=== PATIENT | male | born 1940 | race Caucasian/White ===

== ENCOUNTER 2020-07-21 14:28 | Emergency (ER) | payer MEDICARE ==
[~2020-07-21] VITALS: Ht 182.9 cm; Wt 81.7 kg
--- OUTSIDE RECORDS SUMMARY | ~2020-07-21 | XMS | Clinical Summary ---
Demographics + + + | Address | [address] | | | [place] [address] | + + + | Home Phone | | + + + | Preferred Language | Unknown | + + + | Marital Status | Unknown | + + + | Religion Affiliation | Unknown | + + + | Race | Unknown | + + + | Ethnic Group | Unknown | + + + Author + + + | Author | [facility] | | | and [facility] | + + + | Organization | [facility] | | | and [place] | + + + | Address | Unknown | + + + | Phone | Unavailable | + + + Care Team Providers + +------+ + | Care Grey Tender Name | Role | Phone | + +------+ + PCP | Unavailable | + +------+ + Allergies Not on File Medications Not on file Active Problems Not on file Social History + +-------+ +--------+------+ | Tobacco Use | Types | Packs/Day | Years | Date | | | | | Used | | + +-------+ +--------+------+ | Never Assessed | | | | | + +-------+ +--------+------+ + + + | Sex Assigned at | Date Recorded | | | | + + + | Not on file | | + + + Last Filed Vital Signs Not on file Plan of Treatment + + +-------+ + | Health Maintenance | Due Date | Last | Comments | | | | Done | | + + +-------+ + | Vaccine: | | | | | Dtap/Tdap/Td (1 - | 7 | | | | Tdap) | | | | + + +-------+ + | Vaccine: Zoster (1 | | | | | of 2) | 8 | | | + + +-------+ + | Vaccine: | | | | | Pneumococcal 65+ (1 | 3 | | | | of 1 - PPSV23) | | | | + + +-------+ + | Vaccine: Influenza | | | | | (#1) | 0 | | | + + +-------+ + Results Not on filefrom Last 3 Months Insurance + +--------+ +--------+ +---------+--------+ | Payer | Benefi | Subscriber | Effect | Phone | Address | Type | | | t Plan | ID | paula | | | | | | / | | Dates | | | | | | Group | | | | | | + +--------+ +--------+ +---------+--------+ | MEDICARE | MEDICA | [id number] | 06/18/20 | [phone] | | Medica | | | RE | | 03-Pre | 5 | | re | | | PART A | | sent | | | | | | AND B | | | | | | + +--------+ +--------+ +---------+--------+ + +--------+ +--------+ + + | Guarantor Name | Accoun | Relation to | Date | Phone | Billing Address | | | t Type | Patient | of | | | | | | | | | | + +--------+ +--------+ + + | Jaun Howard | Person | Self | [birth year] | [address] | | | al/Fam | | 1940 | [phone] | [place] [address] | | | richard | | | 9 (Home) | | + +--------+ +--------+ + + | Jaun Howard | Person | Self | [birth year] | [address] | | | al/Fam | | 1940 | [phone] | [place] [address] | | | richard | | | 9 (Home) | | + +--------+ +--------+ + + Advance Directives + + + + + | Type | Date Recorded | Patient | Explanation | | | | Milk Handler | | + + + + + | Power of | | | | | Secretary Bookkeeper | | | | + + + + +"
--- OUTSIDE RECORDS SUMMARY | ~2020-07-21 | XMS | Encounter Summary ---
Demographics + + + | Address | [address] | | | [place] [address] | + + + | Home Phone | | + + + | Preferred Language | Unknown | + + + | Marital Status | Unknown | + + + | Druze Affiliation | Unknown | + + + | Race | Unknown | + + + | Ethnic Group | Unknown | + + + Author + + + | Author | [facility] | | | and [place] | + + + | Organization | [facility] | | | and [place] | + + + | Address | Unknown | + + + | Phone | Unavailable | + + + Care Team Providers + +------+ + | Care Senior Java Programmer Name | Role | Phone | + +------+ + PCP | Unavailable | + +------+ + Encounter Details +--------+ + + + + | Date | Type | Department | Care Team | Description | +--------+ + + + + | 03/13/ | Hospital | [facility] | | | | 2006 | Encounter | MED CTR XRAY [address] | | | | | | [address] | | | | | | [place], [place] [address] | | | | | | [phone] | | | +--------+ + + + [...]
[~2020-07-21 14:28] MED LIST: AMLODIPINE BESY10 MG PO; ASPIRIN EC325 MG PO; BACTRIM DS TAB1 EACH PO; FISH OIL 1,2001 EACH PO; GLIPIZIDE10 MG PO; GLIPIZIDE5 MG PO; KEFLEX500 MG PO; LEVOTHYROXINE200 MCG PO; LOSARTAN POTASS25 MG PO; METOPROLOL SUC200 MG PO; METOPROLOL TART25 MG PO; SYNTHROID25 MCG PO; TERAZOSIN HCL2 MG PO; ZOFRAN ODT4 MG PO
[2020-07-21] MEDS ORDERED: KEFLEX500 MG PO (16:09)
[2020-07-21] MEDS ORDERED: NORCO 5-325 TA1 EACH PO (16:09)
== END 2020-07-21 16:36 | disposition home or self-care (01) ==
LOC: ED 14:28
DX: S62.521A Displaced fracture of distal phalanx of right thumb, initial encounter for closed fracture (principal); S61.111A Laceration without foreign body of right thumb with damage to nail, initial encounter; E11.9 Type 2 diabetes mellitus without complications; I10 Essential (primary) hypertension; E78.00 Pure hypercholesterolemia, unspecified; Z79.899 Other long term (current) drug therapy; W31.89XA Contact with other specified machinery, initial encounter
CPT/HCPCS: 11760; 73140; 99283-25

== ENCOUNTER 2020-08-10 07:10 | Emergency (ER) | payer OTHER ==
[~2020-08-10] VITALS: Ht 182.9 cm; Wt 81.6 kg
--- OUTSIDE RECORDS SUMMARY | ~2020-08-10 | XMS | Encounter Summary ---
Demographics + + + | Address | [address] | | | [place] [address] | + + + | Home Phone | | + + + | Preferred Language | Unknown | + + + | Marital Status | Unknown | + + + | Church Affiliation | Unknown | + + + | Race | Unknown | + + + | Ethnic Group | Unknown | + + + Author + + + | Author | [facility] | | | and [place] | + + + | Organization | [facility] | | | and [place] | + + + | Address | Unknown | + + + | Phone | Unavailable | + + + Care Team Providers + +------+ + | Care Burr Filer Name | Role | Phone | + +------+ + PCP | Unavailable | + +------+ + Encounter Details +--------+ + + + + | Date | Type | Department | Care Team | Description | +--------+ + + + + | 03/13/ | Hospital | [facility] | | | | 2006 | Encounter | MED CTR XRAY [address] | | | | | | [address] | | | | | | [place], [place] [address] | | | | | | [phone] | | | +--------+ + + + + Social History + +-------+ +--------+------+ | Tobacco [...] on file | | + + + documented as of this encounter Plan of Treatment Not on filedocumented as of this encounter Visit Diagnoses Not on filedocumented in this encounter"
--- OUTSIDE RECORDS SUMMARY | ~2020-08-10 | XMS | Clinical Summary ---
Demographics + + + | Address | [address] | | | [place] [address] | + + + | Home Phone | | + + + | Preferred Language | Unknown | + + + | Marital Status | Unknown | + + + | Hindu Affiliation | Unknown | + + + | Race | Unknown | + + + | Ethnic Group | Unknown | + + + Author + + + | Author | [facility] | | | and [facility] | + + + | Organization | [facility] | | | and [place] | + + + | Address | Unknown | + + + | Phone | Unavailable | + + + Care Team Providers + +------+ + | Care Insurance Loss Adjuster Name | Role | Phone | + [...] +--------+ +---------+--------+ | MEDICARE | MEDICA | [id number] | 06/18/20 | [phone] | | Medica [...] Person | Self | [birth year] | [address] | | | al/Fam | | 1940 | [phone] | [place] [address] | | | richard | | | 9 (Home) | | + +--------+ +--------+ + + Advance Directives + + + + + | Type | Date Recorded | Patient | Explanation | | | | Pain Coordinator | | + + + + + | Power of | | | | | Technical Data Analyst | | | | + + + + +"
[~2020-08-10 07:10] MED LIST changes: +NORCO 5-325 TA1 EACH PO
--- OUTSIDE RECORDS SUMMARY | 2020-08-10 07:12 | XMS ---
PreManage Notification: BYRON BOATENG Security Corporate Real Estate Specialist Events No recent Security Events currently on file CRITERIA MET - [facility] - 2 Visits in 30 Days CARE PROVIDERS There are no care providers on record at this time. Keli has no Care Guidelines for this patient. Cait VISIT COUNT (12 MO.) [address] [facility] TOTAL 2 NOTE: Visits indicate total known visits. ED[facility] VISIT TRACKING (12 MO.) 08/10/2020 07:[address] [facility] [place] TYPE: Emergency COMPLAINT: - SUTURE REMOVAL 07/21/2020 14:[address] 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
== END 2020-08-10 07:34 | disposition home or self-care (01) ==
LOC: ED 07:10
DX: S61.011D Laceration without foreign body of right thumb without damage to nail, subsequent encounter (principal)

== ENCOUNTER 2022-09-18 19:47 | Emergency (ER) | payer OTHER, MEDICARE ==
[~2022-09-18] VITALS: Ht 182.9 cm; Wt 74.5 kg
[2022-09-18] MEDS ORDERED: FLOMAX0.4 MG PO (22:33)
[2022-09-18] MEDS ORDERED: CONSTULOSE10 GM/15 M PO (22:34)
== END 2022-09-19 06:45 | disposition home or self-care (01) ==
LOC: ED 19:47
DX: N13.9 Obstructive and reflux uropathy, unspecified (principal); K59.00 Constipation, unspecified; E11.9 Type 2 diabetes mellitus without complications; I10 Essential (primary) hypertension; E78.00 Pure hypercholesterolemia, unspecified
CPT/HCPCS: 36415; 51702; 51798; 74018; 80053; 81001; 83735; 85025; 87502; 99283-25; J7121; U0003

== ENCOUNTER 2022-10-16 20:56 | Emergency (ER) | payer OTHER, MEDICARE ==
[~2022-10-16] VITALS: Ht 180.3 cm; Wt 74.5 kg
[~2022-10-16 20:56] MED LIST changes: +CONSTULOSE10 GM/15 M PO; +FLOMAX0.4 MG PO
--- OUTSIDE RECORDS SUMMARY | 2022-10-16 21:00 | XMS ---
PreManage Notification: BYRON BOATENG Security Pharmacy Stock Clerk Events No recent Security Events currently on file CRITERIA MET - [facility] - 2 Visits in 30 Days CARE PROVIDERS [facility] Internal Medicine 08/11/2020-Current PHONE: Unknown [facility] Current PHONE: [phone] Keli has no Care Guidelines for this patient. Care History Medical/Surgical 08/11/2020 [facility] \T\middot;\T\nbsp; PATIENT IS A -RECEIVES SERVICES THROUGH [place] IN [place]. \T\middot;\T\nbsp; Location: [address], [place] [address]- E.D. VISIT COUNT (12 MO.) [address] [facility] TOTAL 2 NOTE: Visits indicate total known visits. ED/UCC VISIT TRACKING (12 MO.) 10/16/2022 20:57 [facility] [place] TYPE: Emergency COMPLAINT: - CATHETER PROBLEM 09/18/2022 19:47 [facility] [place] TYPE: Emergency COMPLAINT: - WEAKNESS DIAGNOSES: - Weakness - Essential (primary) hypertension - Obstructive and reflux uropathy, unspecified - Contact with and (suspected) exposure to COVID-19 - Constipation, unspecified - Pure hypercholesterolemia, unspecified - Type 2 diabetes mellitus without complications INPATIENT VISIT TRACKING (12 MO.) No inpatient visits to display in this time frame [id number]
[2022-10-16] MEDS ORDERED: FLUTICASONE PRO16 GM NAS (21:04)
[2022-10-16] MEDS ORDERED: AMLODIPINE BESYL5 MG PO (21:04)
[2022-10-16] MEDS ORDERED: LEVOTHYROXINE125 MCG PO (21:04)
[2022-10-17] MEDS ORDERED: FLOMAX0.4 MG PO (00:23)
[2022-10-17] MEDS ORDERED: MACROBID 100 M100 MG PO (00:57)
== END 2022-10-17 01:28 | disposition home or self-care (01) ==
LOC: ED 20:56
DX: T83.091A Other mechanical complication of indwelling urethral catheter, initial encounter (principal); R33.9 Retention of urine, unspecified; N39.0 Urinary tract infection, site not specified; I10 Essential (primary) hypertension; E11.9 Type 2 diabetes mellitus without complications; E78.00 Pure hypercholesterolemia, unspecified; Z79.899 Other long term (current) drug therapy; Y83.8 Other surgical procedures as the cause of abnormal reaction of the patient, or of later complication, without mention of misadventure at the time of the procedure
CPT/HCPCS: 51702; 51798; 81001; 99283-25

== ENCOUNTER 2022-10-25 12:03 | Emergency (ER) | payer OTHER, MEDICARE ==
[~2022-10-25] VITALS: Ht 180.3 cm; Wt 66.3 kg
[~2022-10-25 12:03] MED LIST changes: +AMLODIPINE BESYL5 MG PO; +FLUTICASONE PRO16 GM NAS; +LEVOTHYROXINE125 MCG PO; +MACROBID 100 M100 MG PO
--- OUTSIDE RECORDS SUMMARY | 2022-10-25 12:10 | XMS ---
PreManage Notification: BYRON BOATENG Security Manager Community Relations Events No recent Security Events currently on file CRITERIA MET - [facility] - 2 Visits in 30 Days CARE PROVIDERS COREY HAYS Internal Medicine 08/11/2020-Current PHONE: Unknown [facility] Current PHONE: [phone] Keli has no Care Guidelines for this patient. Care History Medical/Surgical 08/11/2020 [facility] \T\middot;\T\nbsp; PATIENT IS A -RECEIVES SERVICES THROUGH [place]. \T\middot;\T\nbsp; Location: [address], [place] [address]- E.D. VISIT COUNT (12 MO.) [address] [facility] TOTAL 3 NOTE: Visits indicate total known visits. 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 [place] TYPE: Emergency COMPLAINT: - WEAKNESS DIAGNOSES: - Pure hypercholesterolemia, unspecified - Type 2 diabetes mellitus without complications - Weakness - Essential (primary) hypertension - Obstructive and reflux uropathy, unspecified - Contact with and (suspected) exposure to COVID-19 - Constipation, unspecified INPATIENT VISIT TRACKING (12 MO.) No inpatient visits to display in this time frame [id number]
[2022-10-25] MEDS ORDERED: ELIQUIS5 M1 PO (17:48)
[2022-10-25] MEDS ORDERED: CEPHALEXIN500 M1 PO (17:48)
== END 2022-10-25 18:47 | disposition home or self-care (01) ==
LOC: ED 12:03
DX: I26.99 Other pulmonary embolism without acute cor pulmonale (principal); N39.0 Urinary tract infection, site not specified; R63.4 Abnormal weight loss; E11.9 Type 2 diabetes mellitus without complications; I10 Essential (primary) hypertension; E78.00 Pure hypercholesterolemia, unspecified; Z79.899 Other long term (current) drug therapy
CPT/HCPCS: 36415; 71260; 74177; 80053; 81001; 83690; 85025; 99285-25; J2405; J7030; Q9967

== ENCOUNTER 2023-05-29 10:54 | Emergency (ER) | payer OTHER, MEDICARE ==
[~2023-05-29] VITALS: Ht 180.3 cm; Wt 73.6 kg
--- OUTSIDE RECORDS SUMMARY | ~2023-05-29 | XMS | Continuity of Care Document ---
Demographics + + + | Address | [address] | | | [place] [address] | + + + | Preferred Language | Unknown | + + + | Marital Status | | + + + | Advent Affiliation | Unknown | + + + | Race | White | + + + | Ethnic Group | Not or | + + + Author + + + | Author | [facility] | + + + | Organization | [facility] | + + + | Address | [address] | | | [place] [address] | + + + | Phone | | + + + Care Team Providers + + + + | Care Revenue Stamper Name | Role | Phone | + + + + Unavailable | Unavailable | + + + + Unavailable | Unavailable | + + + + Unavailable | Unavailable | + + + + Allergies and Intolerances + + + + + | date | description | facility | type | + + + + + | (no date) | No Known Allergies | [facility] | (unknown) | | | | | | + + + + + Encounters No information. Functional Status No information. Immunizations No information. Medications + + + + | date | description | facility | + + + + | 2022-10-17 00:00 | FLUTICASONE PROPIONATE 50 | [facility] | | | MCG | | + + + + | 2022-10-26 00:00 | FLUTICASONE PROPIONATE 50 | [facility] | | | MCG | | + + + + | 2022-10-17 00:00 | AMLODIPINE BESYLATE | [facility] | + + + + | 2022-10-26 00:00 | AMLODIPINE BESYLATE | [facility] | + + + + | 2022-10-25 00:00 | CEPHALEXIN | [facility] | + + + + | 2022-10-25 00:00 | Apixaban | [facility] | + + + + | 2022-09-19 00:00 | GLIPIZIDE | [facility] | + + + + | 2022-10-17 00:00 | GLIPIZIDE | [facility] | + + + + | 2022-10-26 00:00 | GLIPIZIDE | [facility] | + + + + | 2022-10-17 00:00 | NITROFURANTOIN MONOHYD | [facility] | | | MACROCR | | + + + + | 2022-09-18 00:00 | LACTULOSE | [facility] | + + + + | 2016-09-22 00:00 | | [facility] | | | SULFAMETHOXAZOLE/TRIMETHOPR | | | | IM DS | | + + + + | 2016-09-22 00:00 | | [facility] | | | SULFAMETHOXAZOLE/TRIMETHOPR | | | | IM DS | | + + + + | 2020-07-21 00:00 | HYDROCODONE | [facility] | | | BIT/ACETAMINOPHEN | | + + + + | 2020-07-21 00:00 | HYDROCODONE | [facility] | | | BIT/ACETAMINOPHEN | | + + + + | 2022-09-18 00:00 | TAMSULOSIN HCL | [facility] | + + + + | 2022-10-17 00:00 | TAMSULOSIN HCL | [facility] | + + + + | 2022-10-17 00:00 | TAMSULOSIN HCL | [facility] | + + + + | 2022-09-19 00:00 | METOPROLOL TARTRATE | [facility] | + + + + | 2022-10-17 00:00 | METOPROLOL TARTRATE | [facility] | + + + + | 2022-10-26 00:00 | METOPROLOL TARTRATE | [facility] | + + + + | 2022-09-19 00:00 | LEVOTHYROXINE SODIUM | [facility] | + + + + | 2022-10-17 00:00 | LEVOTHYROXINE SODIUM | [facility] | + + + + | 2022-10-26 00:00 | LEVOTHYROXINE SODIUM | [facility] | + + + + | 2022-10-17 00:00 | LEVOTHYROXINE SODIUM | [facility] | + + + + | 2022-10-26 00:00 | LEVOTHYROXINE SODIUM | [facility] | + + + + Problems + + + + | | description | facility | + + + + | 2016-09-22 00:00 | Viral infection | [facility] | + + + + | 2016-09-22 00:00 | Viral infection | [facility] | + + + + | 2016-09-22 00:00 | Cellulitis of great toe of | [facility] | | | right foot | | + + + + | 2016-09-22 00:00 | Cellulitis of great toe of | [facility] | | | right foot | | + + + + | 2016-09-22 00:00 | Weakness | [facility] | + + + + | 2016-09-22 00:00 | Weakness | [facility] | + + + + | 2020-08-10 00:00 | Encounter for medical | [facility] | | | screening examination | | + + + + | 2020-08-10 00:00 | Encounter for medical | [facility] | | | screening examination | | + + + + | 2022-09-18 00:00 | Constipation | [facility] | + + + + | 2022-09-18 00:00 | Constipation | [facility] | + + + + | 2022-09-18 00:00 | Obstruction to urinary | [facility] | | | outflow | | + + + + | 2022-09-18 00:00 | Obstruction to urinary | [facility] | | | outflow | | + + + + | 2022-10-16 20:57 | TYPE 2 DIABETES MELLITUS | [facility] | | | WITHOUT COMPLICATIONS | | + + + + | 2022-10-16 20:57 | PURE HYPERCHOLESTEROLEMIA, | [facility] | | | UNSPECIFIED | | + + + + | 2022-10-16 20:57 | Essential (primary) | [facility] | | | hypertension | | + + + + | 2022-10-16 20:57 | URINARY TRACT INFECTION, | [facility] | | | SITE NOT SPECIFIED | | + + + + | 2022-10-16 20:57 | RETENTION OF URINE, | [facility] | | | UNSPECIFIED | | + + + + | 2022-10-16 20:57 | [facility] COMPL OF INDWELLING | [facility] | | | URETHRAL CATHETER, INIT | | + + + + | 2022-10-16 20:57 | OTH SURGICAL PROCEDURES | [facility] | | | CAUSE ABN REACT/COMPL, W/O | | + + + + | 2022-10-16 20:57 | OTHER NURSING HOME (CURRENT) | [facility] | | | DRUG THERAPY | | + + + + | 2022-10-17 00:00 | Urinary tract infection | [facility] | + + + + | 2022-10-17 00:00 | Urinary tract infection | [facility] | + + + + | 2022-10-17 00:00 | Retention of urine | [facility] | + + + + | 2022-10-17 00:00 | Retention of urine | [facility] | + + + + | 2022-10-17 00:00 | Problem with Lisa | [facility] | | | catheter | | + + + + | 2022-10-17 00:00 | Problem with Lisa | [facility] | | | catheter | | + + + + | 2022-10-24 11:58 | ATHEROSCLEROSIS OF OTHER | [facility] | | | ARTERIES | | + + + + | 2022-10-24 11:58 | OTHER DISORDERS OF LUNG | [facility] | + + + + | 2022-10-24 11:58 | FECAL IMPACTION | [facility] | + + + + | 2022-10-24 11:58 | 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, LUMBAR REG | | + + + + | 2022-10-24 11:58 | ABNORMAL WEIGHT LOSS | [facility] | + + + + | 2022-10-25 00:00 | Pulmonary embolism | [facility] | + + + + | 2022-10-25 00:00 | Weight loss | [facility] | + + + + | 2022-10-25 12:03 | TYPE 2 DIABETES MELLITUS | [facility] | | | WITHOUT COMPLICATIONS | | + + + + | 2022-10-25 12:03 | PURE HYPERCHOLESTEROLEMIA, | [facility] | | | UNSPECIFIED | | + + + + | 2022-10-25 12:03 | Essential (primary) | [facility] | | | hypertension | | + + + + | 2022-10-25 12:03 | 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 | | + + + + | 2022-10-25 12:03 | URINARY TRACT INFECTION, | [facility] | | | SITE NOT SPECIFIED | | + + + + | 2022-10-25 12:03 | WEAKNESS | [facility] | + + + + | 2022-10-25 12:03 | ABNORMAL WEIGHT LOSS | [facility] | + + + + | 2022-10-25 12:03 | OTHER NURSING HOME (CURRENT) | [facility] | | | DRUG THERAPY | | + + + + | 2022-12-04 15:30 | 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 | | + + + + | 2022-12-04 15:30 | ENCOUNTER FOR THERAPEUTIC | [facility] | | | DRUG LEVEL MONITORING | | + + + + | 2022-12-04 15:30 | NURSING HOME (CURRENT) USE OF | [facility] | | | ANTICOAGULANTS | | + + + + | 2022-12-11 10:25 | ENCOUNTER FOR THERAPEUTIC | [facility] | | | DRUG LEVEL MONITORING | | + + + + | 2022-12-18 10:40 | 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 | | + + + + | 2022-12-18 10:40 | ENCOUNTER FOR THERAPEUTIC | [facility] | | | DRUG LEVEL MONITORING | | + + + + | 2022-12-18 10:40 | ISOTOPE TECHNOLOGIST (CURRENT) USE OF | [facility] | | | ANTICOAGULANTS | | + + + + | 2022-12-21 09:54 | UNIL INGUINAL HERNIA, W/O | [facility] | | | OBST OR GANGR, NOT SPCF | | | | RECUR | | + + + + | 2023-01-01 09:47 | 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 | | + + + + | 2023-01-01 09:47 | ENCOUNTER FOR THERAPEUTIC | [facility] | | | DRUG LEVEL MONITORING | | + + + + | 2023-01-01 09:47 | ISOTOPE TECHNOLOGIST (CURRENT) USE OF | [facility] | | | ANTICOAGULANTS | | + + + + | 2023-05-23 09:40 | UNIL INGUINAL HERNIA, W/O | [facility] | | | OBST OR GANGR, NOT SPCF | | + + + + | 2023-05-23 09:40 | ENCOUNTER FOR OTHER | [facility] | | | PREPROCEDURAL EXAMINATION | | + + + + | 2023-05-29 08:15 | HYPOTHYROIDISM, | [facility] | | | UNSPECIFIED | | + + + + | 2023-05-29 08:15 | TYPE 2 DIABETES MELLITUS | [facility] | | | WITHOUT COMPLIC | | + + + + | 2023-05-29 08:15 | 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[facility] | | | WITHOUT ACUTE C | | + + + + | 2023-05-29 08:15 | UNIL INGUINAL HERNIA, W/O | [facility] | | | OBST OR GANGR, | | + + + + | 2023-05-29 08:15 | BENIGN PROSTATIC | [facility] | | | HYPERPLASIA WITHOUT LOW | | + + + + | 2023-05-29 09:00 | HYPOTHYROIDISM, | [facility] | | | UNSPECIFIED | | + + + + | 2023-05-29 09:00 | TYPE 2 DIABETES MELLITUS | [facility] | | | WITHOUT COMPLIC | | + + + + | 2023-05-29 09:00 | 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[facility] | | | WITHOUT ACUTE C | | + + + + | 2023-05-29 09:00 | UNIL INGUINAL HERNIA, W/O | [facility] | | | OBST OR GANGR, | | + + + + | 2023-05-29 09:00 | BENIGN PROSTATIC | [facility] | | | HYPERPLASIA WITHOUT LOW | | + + + + Procedures No information. Results/Labs No information. Social History No information. Vital Signs + + + +---------+ | date | measurement | value | units | + + + +---------+ | 2022-09-18 00:00 | BMI | 22.3 | kg/m2 | + + + +---------+ | 2022-09-18 00:00 | height_metric | 182.88 | cm | + + + +---------+ | 2022-09-18 00:00 | height_standard | 72 | in | + + + +---------+ | 2022-09-18 00:00 | weight_metric | 74.5 | kg | + + + +---------+ | 2022-09-18 00:00 | weight_standard | 164.24 | lb | + + + +---------+ | 2022-09-19 00:00 | BP_diastolic | 102 | mmHg | + + + +---------+ | 2022-09-19 00:00 | BP_systolic | 166 | mmHg | + + + +---------+ | 2022-09-19 00:00 | heart_rate | 86 | /min | + + + +---------+ | 2022-09-19 00:00 | o2_saturation | 97 | % | + + + +---------+ | 2022-09-19 00:00 | respiration_rate | 16 | /min | + + + +---------+ | 2022-09-19 00:00 | temperature_metric | 36.5 | C | | | | | | + + + +---------+ | 2022-09-19 00:00 | | 97.7 | F | | | temperature_standar | | | | | d | | | + + + +---------+ | 2022-10-16 00:00 | BMI | 22.9 | kg/m2 | + + + +---------+ | 2022-10-16 00:00 | height_metric | 180.34 | cm | + + + +---------+ | 2022-10-16 00:00 | height_standard | 71 | in | + + + +---------+ | 2022-10-16 00:00 | weight_metric | 68.13 | kg | + + + +---------+ | 2022-10-16 00:00 | weight_metric | 74.47 | kg | + + + +---------+ | 2022-10-16 00:00 | weight_standard | 150.19 | lb | + + + +---------+ | 2022-10-16 00:00 | weight_standard | 164.18 | lb | + + + +---------+ | 2022-10-17 00:00 | BP_diastolic | 84 | mmHg | + + + +---------+ | 2022-10-17 00:00 | BP_systolic | 113 | mmHg | + + + +---------+ | 2022-10-17 00:00 | heart_rate | 84 | /min | + + + +---------+ | 2022-10-17 00:00 | o2_saturation | 97 | % | + + + +---------+ | 2022-10-17 00:00 | respiration_rate | 17 | /min | + + + +---------+ | 2022-10-17 00:00 | temperature_metric | 37 | C | | | | | | + + + +---------+ | 2022-10-17 00:00 | | 98.6 | F | | | temperature_standar | | | | | d | | | + + + +---------+ | 2022-10-25 00:00 | BMI | 20.4 | kg/m2 | + + + +---------+ | 2022-10-25 00:00 | BP_diastolic | 66 | mmHg | + + + +---------+ | 2022-10-25 00:00 | BP_systolic | 146 | mmHg | + + + +---------+ | 2022-10-25 00:00 | heart_rate | 89 | /min | + + + +---------+ | 2022-10-25 00:00 | height_metric | 180.34 | cm | + + + +---------+ | 2022-10-25 00:00 | height_standard | 71 | in | + + + +---------+ | 2022-10-25 00:00 | o2_saturation | 99 | % | + + + +---------+ | 2022-10-25 00:00 | respiration_rate | 16 | /min | + + + +---------+ | 2022-10-25 00:00 | temperature_metric | 36.83 | C | | | | | | + + + +---------+ | 2022-10-25 00:00 | | 98.3 | F | | | temperature_standar | | | | | d | | | + + + +---------+ | 2022-10-25 00:00 | weight_metric | 66.31 | kg | + + + +---------+ | 2022-10-25 00:00 | weight_standard | 146.19 | lb | + + + +---------+"
--- OUTSIDE RECORDS SUMMARY | ~2023-05-29 | XMS | Continuity of Care Document ---
Demographics + + + | Address | [address] | | | [place] [address] | + + + | Preferred Language | Unknown | + + + | Marital Status | | + + + | Temple Affiliation | Unknown | + + + | Race | White | + + + | Ethnic Group | Not or | + + + Author + + + | Author | [facility] | + + + | Organization | [facility] | + + + | Address | [address] | | | [place] [address] | + + + | Phone | | + + + Care Team Providers + + + + | Care Lead Network Architect Name | Role | Phone | + [...] 2022-10-17 00:00 | FLUTICASONE PROPIONATE 50 | [facility] | | | [facility]CG | | + + + + | 2022-10-26 00:00 | FLUTICASONE PROPIONATE 50 | [facility] | | | MCG | | + + + + | 2022-10-17 00:00 | AMLODIPINE BESYLATE | [facility] | + + + + | 2022-10-26 00:00 | AMLODIPINE BESYLATE | [facility] | + + + + | 2022-10-25 00:00 | CEPHALEXIN | [facility] | + + + + | 2022-10-25 00:00 | Apixaban | [facility] | + + + + | 2022-09-19 00:00 | GLIPIZIDE | [facility] | + + + + | 2022-10-17 00:00 | GLIPIZIDE | [facility] | + + + + | 2022-10-26 00:00 | GLIPIZIDE | [facility] | + + + + | 2022-10-17 00:00 | NITROFURANTOIN MONOHYD | [facility] | | | MACROCR | | + + + + | 2022-09-18 00:00 | LACTULOSE | [facility] | + + + + | 2016-09-22 00:00 | | [facility] | | | SULFAMETHOXAZOLE/TRIMETHOPR | | | | IM DS | | + + + + | 2016-09-22 00:00 | | [facility] | | | SULFAMETHOXAZOLE/TRIMETHOPR | | | | IM DS | | + + + + | 2020-07-21 00:00 | HYDROCODONE | [facility] | | | BIT/ACETAMINOPHEN | | + + + + | 2020-07-21 00:00 | HYDROCODONE | [facility] | | | BIT/ACETAMINOPHEN | | + + + + | 2022-09-18 00:00 | TAMSULOSIN HCL | [facility] | + + + + | 2022-10-17 00:00 | TAMSULOSIN HCL | [facility] | + + + + | 2022-10-17 00:00 | TAMSULOSIN HCL | [facility] | + + + + | 2022-09-19 00:00 | METOPROLOL TARTRATE | [facility] | + + + + | 2022-10-17 00:00 | METOPROLOL TARTRATE | [facility] | + + + + | 2022-10-26 00:00 | METOPROLOL TARTRATE | [facility] | + + + + | 2022-09-19 00:00 | LEVOTHYROXINE SODIUM | [facility] | + + + + | 2022-10-17 00:00 | LEVOTHYROXINE SODIUM | [facility] | + + + + | 2022-10-26 00:00 | LEVOTHYROXINE SODIUM | [facility] | + + + + | 2022-10-17 00:00 | LEVOTHYROXINE SODIUM | [facility] | + + + + | 2022-10-26 00:00 | LEVOTHYROXINE SODIUM | [facility] | + + + + Problems + + + + | | description | facility | + + + + | 2016-09-22 00:00 | Viral infection | [facility] | + + + + | 2016-09-22 00:00 | Viral infection | [facility] | + + + + | 2016-09-22 00:00 | Cellulitis of great toe of | [facility] | | | right foot | | + + + + | 2016-09-22 00:00 | Cellulitis of great toe of | [facility] | | | right foot | | + + + + | 2016-09-22 00:00 | Weakness | [facility] | + + + + | 2016-09-22 00:00 | Weakness | [facility] | + + + + | 2020-08-10 00:00 | Encounter for medical | [facility] | | | screening examination | | + + + + | 2020-08-10 00:00 | Encounter for medical | [facility] | | | screening examination | | + + + + | 2022-09-18 00:00 | Constipation | [facility] | + + + + | 2022-09-18 00:00 | Constipation | [facility] | + + + + | 2022-09-18 00:00 | Obstruction to urinary | [facility] | | | outflow | | + + + + | 2022-09-18 00:00 | Obstruction to urinary | [facility] | | | outflow | | + [...] + + + | 2022-10-16 20:57 | [facility] COMPL OF INDWELLING | [facility] | | | URETHRAL CATHETER, INIT | | + + + + | 2022-10-16 20:57 | OTH SURGICAL PROCEDURES | [facility] | | | CAUSE ABN REACT/COMPL, W/O | | + + + + | 2022-10-16 20:57 | OTHER [facility] (CURRENT) | [facility] | | | DRUG THERAPY | | + + + + | 2022-10-17 00:00 | Urinary tract infection | [facility] | + + + + | 2022-10-17 00:00 | Urinary tract infection | [facility] | + + + + | 2022-10-17 00:00 | Retention of urine | [facility] | + + + + | 2022-10-17 00:00 | Retention of urine | [facility] | + + + + | 2022-10-17 00:00 | Problem with Lisa | [facility] | | | catheter | | + + + + | 2022-10-17 00:00 | Problem with Lisa | [facility] | | | catheter | | + [...] | 2022-10-25 00:00 | Pulmonary embolism | [facility] | + + + + | 2022-10-25 00:00 | Weight loss | [facility] | + + + + | 2022-10-25 [...] + + | 2022-10-25 12:03 | OTHER [facility] (CURRENT) | [facility] | | | DRUG THERAPY | | + + + + | 2022-12-04 15:30 | 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
[~2023-05-29 10:54] MED LIST changes: +CEPHALEXIN500 M1 PO; +ELIQUIS5 M1 PO; +ELIQUIS5 MG PO; +FUROSEMIDE20 MG PO; +JANTOVEN5 MG PO; +PANTOPRAZOLE SO40 MG PO
[2023-05-29 12:54] VITALS: BP 158/94
--- NOTE | 2023-05-31 06:20 | EKG ---
[facility] [address] [place] [address] Signed Normal sinus rhythm Possible Inferior infarct , age undetermined Abnormal ECG When compared with ECG of 23-MAY-2023 09:13, T wave flattening present in inferior leads. Confirmed by MARU MICHELLE MD ([id number]) on 05/31/2023 6:19:58 AM Electronically Signed By: MARU MICHELLE 05/31/23 0620 PATIENT NAME: JESSICA BOATENGMIKEL Nguyen Electrocardiogram DATE OF : 36 PHYSICIAN: MARU MICHELLE REPORT #: [id number] REPORT IS CONFIDENTIAL AND NOT TO BE RELEASED WITHOUT AUTHORIZATION
== END 2023-05-29 12:55 | disposition home or self-care (01) ==
LOC: ED 10:54
DX: I16.0 Hypertensive urgency (principal); I10 Essential (primary) hypertension; E11.9 Type 2 diabetes mellitus without complications; Z88.8 Allergy status to other drugs, medicaments and biological substances; Z79.899 Other long term (current) drug therapy; Z79.890 Hormone replacement therapy; Z79.01 Long term (current) use of anticoagulants
CPT/HCPCS: 36415; 71045; 80053; 81001; 84484; 85025; 93005; 93010; 99284 25